=== PATIENT | female | born 1985 | race Caucasian/White ===

== ENCOUNTER 2017-06-05 08:44 | Emergency (ER) | payer OTHER ==
[~2017-06-05] VITALS: Ht 160 cm; Wt 70.2 kg
[~2017-06-05 08:44] MED LIST: FURO1TAB62 PO; LISI10TA3 PO; POTA20TA5 PO
[2017-06-05 08:52] VITALS: BP 149/97; PULSE 125; RESP 18; TEMP 97.3; O2SAT 100
[2017-06-05] MEDS ORDERED: FURO1TAB60 PO (09:06)
--- NOTE | 2017-06-05 09:21 | PD ---
HPI Chief Complaint: Respiratory Symptoms Time Seen by Provider: 09:00 Travel History International Travel<30 days: No Contact w/Intl Traveler<30days: No Traveled to known affect area: No History of Present Illness HPI The patient is 32 years old. She has a history of congenital heart disease with cardiomyopathy and an ejection fraction of approximately 2025%. She started to have liver disease. The patient is a current IV drug user. She has no primary doctor with whom she follows currently. She complains of generalized swelling, shortness of breath, total body pain, fatigue and insomnia. She's had no fever duration of symptoms is been more than a week. Timing constant. There is no modifying factor. PFSH Past Medical History Anemia: Yes Asthma: No Blood Disorders: No Heart Rhythm Problems: Yes Cancer: No Cardiovascular Problems: Yes (htn out of meds) High Cholesterol: No Chemotherapy: No Chest Pain: No Congestive Heart Failure: Yes COPD: No Diabetes: No Endocrine: No Genitourinary: No Hepatitis: Yes (poss hep c) Musculoskeletal: No Neurologic: No Psychiatric: No Respiratory: Yes (chf) Radiation Therapy: No Sleep Apnea: No Thyroid Disease: No ?: Not Social History Alcohol Use: No Tobacco Use: Yes (1 ppd) Substance Use: Yes (OPIATES SINCE AGE 16) Allergies-Medications (Allergen,Severity, Reaction): Coded Allergies: cefepime (Unverified Allergy, Severe, 06/05/17) ceftaroline fosamil (Unverified Allergy, Severe, 06/05/17) cephalexin (Verified Allergy, Severe, Anaphylaxis, 06/05/17) codeine (Unverified Allergy, Severe, SOB, 06/05/17) Reported Meds & Prescriptions Reported Meds & Active Scripts Active Lasix (Furosemide) 20 Mg Tab 20 Mg PO BID Potassium Chloride Microencaps 20 Meq Tab 20 Meq PO DAILY Lisinopril 10 Mg Tab 10 Mg PO DAILY Review of Systems Except as stated in HPI: all other systems reviewed are Neg General / Constitutional: No: Fever Physical Exam Narrative GENERAL: 32-year-old female well-nourished well-developed no acute distress Vital Signs Date Time Temp Pulse Resp B/P (MAP) Pulse Ox O2 Delivery O2 Flow Rate FiO2 06/05/17 08:52 97.3 125 18 149/97 (114) 100 SKIN: Warm and dry. Multiple areas of ecchymosis about the upper extremities. HEAD: Atraumatic. Normocephalic. EYES: Pupils equal and round. No scleral icterus. No injection or drainage. ENT: No nasal bleeding or discharge. Mucous membranes pink and moist. NECK: Trachea midline. No JVD. CARDIOVASCULAR: Tachycardia. Regular rhythm. RESPIRATORY: No accessory muscle use. Clear to auscultation. Breath sounds equal bilaterally. GASTROINTESTINAL: There is nonspecific generalized abdominal tenderness. MUSCULOSKELETAL: 2+ pitting edema bilateral lower extremities. NEUROLOGICAL: Awake and alert. No obvious cranial nerve deficits. Motor grossly within normal limits. Five out of 5 muscle strength in the arms and legs. Normal speech. PSYCHIATRIC: Affect is flat though reasonably cooperative. Data Data Last Documented VS Vital Signs Date Time Temp Pulse Resp B/P (MAP) Pulse Ox O2 Delivery O2 Flow Rate FiO2 06/05/17 08:52 97.3 125 18 149/97 (114) 100 Orders Orders Urinalysis - C+S If Indicated (06/05/17 08:58) Ed Urine Pregnancytest Poc (06/05/17 08:58) MDM Medical Decision Making Medical Screen Exam Complete: Yes Emergency Medical Condition: Yes Medical Record Reviewed: Yes Differential Diagnosis CHF, pleural effusion, ascites Narrative Course Patient has very difficult vascular access. I tried at the bedside and successfully cannulated an antecubital vein with a good draw however it shortly thereafter infiltrated. The patient has a very low threshold for pain tolerance presumably hyperalgesia in etiology. Vascular access team is available today, 920AM on Tuesday, and offered to come assist the patient. The patient elected to leave prior to vascular access coming here. Unfortunately the patient with the sign out AGAINST MEDICAL ADVICE. Diagnosis Primary Impression: Left against medical advice Disposition: LEFT WITHOUT BEING SEEN Condition: Stable Massimo Chaudhry MD Jun 05, 2017 09:21
== END 2017-06-05 09:35 | disposition left against medical advice (07) ==
LOC: PHED 08:44
DX: R60.1 Generalized edema (principal); R00.0 Tachycardia, unspecified; I11.0 Hypertensive heart disease with heart failure; I50.9 Heart failure, unspecified; D64.9 Anemia, unspecified; F17.200 Nicotine dependence, unspecified, uncomplicated; Z79.899 Other long term (current) drug therapy; Z88.5 Allergy status to narcotic agent; Z53.21 Procedure and treatment not carried out due to patient leaving prior to being seen by health care provider
CPT/HCPCS: 99281